=== PATIENT | female | born 1995 | race Caucasian/White ===

== ENCOUNTER 2019-08-01 11:19 | Outpatient (CLI) | payer SELFPAY ==
--- NOTE | ~2019-08-01 | US_ITS ---
US breast LT limited INDICATION: Palpable right breast abnormality TECHNIQUE: Dedicated right breast ultrasound COMPARISON: No prior studies for comparison. FINDINGS: The right breast is composed of normal heterogeneous echotexture without focal solid or cys tic mass. No mass identified in the areas of palpable concern at 7:00 and the periareolar region. IMPRESSION: 1: Normal right breast ultrasound. BI-RADS CATEGORY 1 - NEGATIVE Reviewed, dictated and finalized at location A.
== END 2019-08-01 11:20 | disposition home or self-care (01) ==
LOC: ANHIMG 11:25
PROVIDERS: PCP Family Medicine; Visit Provider Family Medicine
DX: N63.20 Unspecified lump in the left breast, unspecified quadrant (principal)
CPT/HCPCS: 76642

== ENCOUNTER 2020-12-25 11:19 | Emergency (ER) | payer OTHER, SELFPAY ==
[2020-12-25 11:45] VITALS: BP 110/85; PULSE 93; RESP 16; TEMP 36.9; O2SAT 100
--- NOTE | 2020-12-25 12:24 | ED.URI ---
HPI - URI/Sore Throat General Chief Complaint: Upper Respiratory Infection Stated Complaint: sore throat/headache/neck pain Source: patient and RN notes reviewed Limitations: no limitations Related Data Home Medications Medication Instructions Recorded Confirmed alprazolam 0.25 mg PO PRN PRN 02/17/19 12/25/20 norethindrone-e.estradiol-iron [Lo 1 tablet PO DAILY 12/25/20 12/25/20 Loestrin Fe] Allergies Allergy/AdvReac Type Severity Reaction Status Date / Time No Known Allergies Allergy Verified 12/25/20 11:43 [facility] Social History Social History (Updated 05/03/19 @ 12:11 by TERI Lutz) Tobacco type: e-cigarettes/vaping Course Vital Signs Vital signs: Vital Signs Temperature 98.4 F 12/25/20 11:45 Pulse Rate 93 12/25/20 11:45 Respiratory Rate 16 12/25/20 11:45 Blood Pressure 110/85 12/25/20 11:45 Pulse Oximetry 100 12/25/20 11:45 Temperature 98.4 F 12/25/20 11:45 Pulse Rate 93 12/25/20 11:45 Respiratory Rate 16 12/25/20 11:45 Blood Pressure 110/85 12/25/20 11:45 Pulse Oximetry 100 12/25/20 11:45 MDM - URI/Sore Throat Lab Data Labs: Strep Screen Presumptive Negative *(Reference Range: Negative)* Discharge Plan Discharge Clinical Impression: Pharyngitis Prescriptions: No Action Lo Loestrin Fe 1 mg-10 mcg (24)/10 mcg (2) tablet 1 tablet PO DAILY RF: 0 alprazolam 0.25 mg tablet 0.25 mg PO PRN PRN (Reason: Anxiety) RF: 0 Follow-up/Referrals: Donta,Justyn Roberts MD [Primary Care Provider] -
== END 2020-12-25 12:40 | disposition home or self-care (01) ==
PROVIDERS: Emergency Provider Emergency Medicine; PCP Family Medicine
DX: J02.9 Acute pharyngitis, unspecified (principal); F17.200 Nicotine dependence, unspecified, uncomplicated; F41.0 Panic disorder [episodic paroxysmal anxiety]
CPT/HCPCS: 87081; 87880; 99213; G0463

== ENCOUNTER → 2020-12-29 03:27 | Outpatient (CLI) | payer OTHER, SELFPAY ==
[2020-12-29 22:41] LABS: SARS-CoV-2 RNA PCR Negative
== END ==
PROVIDERS: PCP Family Medicine; Visit Provider Emergency Medicine
DX: J02.9 Acute pharyngitis, unspecified (principal); Z20.822 Contact with and (suspected) exposure to COVID-19
CPT/HCPCS: C9803; U0003; U0005

== ENCOUNTER 2021-02-26 11:20 | Emergency (ER) | payer OTHER, SELFPAY ==
[2021-02-26 11:27] VITALS: BP 117/89; PULSE 112; RESP 16; TEMP 37.4; O2SAT 99
--- NOTE | 2021-02-26 11:31 | ED.GENADULT ---
HPI - General Adult General Chief complaint: Upper Respiratory Infection Stated complaint: congestion/ear pain/difficulty breathing Source: patient Mode of arrival: ambulatory Limitations: no limitations History of Present Illness HPI narrative: 25 y/o female. PMHx YARED, MDD. Presents to [facility] today with acute complaints of increased sinus congestion, purulent nasal discharge, bilateral ear 'fullness', as well as intermittent dyspnea for the past 5 days. Client denies fever, chills, myalgia. No sore throat, dysphagia, involuntary drooling. No chest pain, palpitations. She reports no known ill contacts or active Covid 19 viral concerns. She has been taking OTC remedies that have been sub-therapeutic. No additional acute c/o illness upon PE. Related Data Home Medications Medication Instructions Recorded Confirmed alprazolam 0.25 mg PO PRN PRN 02/17/19 12/25/20 norethindrone-e.estradiol-iron [Lo 1 tablet PO DAILY 12/25/20 12/25/20 Loestrin Fe] Allergies Allergy/AdvReac Type Severity Reaction Status Date / Time No Known Allergies Allergy Verified 12/25/20 11:43 Review of Systems Review of Systems: CONSTITUTIONAL: Denies fever, chills, sweats. EYES: Denies visual changes, redness, discharge. ENT: Positive rhinorrhea, congestion, otalgia. No sore throat. CARDIOVASCULAR: Denies chest pain, palpitations, edema. RESPIRATORY: Denies dyspnea, wheezing, cough GASTROINTESTINAL: Denies abdominal pain, nausea, vomiting, diarrhea. GENITOURINARY: Denies dysuria, hematuria, abnormal discharge SKIN: Denies rash or itching. MUSCULOSKELETAL: Denies acute back pain, joint pain, or myalgia. NEUROLOGIC: Denies numbness, or focal weakness. PSYCHIATRIC: Denies anxiety or depression. All systems reviewed & are unremarkable except as noted in HPI and below PMFSH Social History Social History Tobacco type: e-cigarettes/vaping Exam Narrative: GENERAL: This is a well-nourished, well-developed adult, in no apparent distress. HEAD: normocephalic, atraumatic. EYES: PERRL. Sclera clear/white. EARS: External ears normal, auditory canals clear and without drainage, TMs bulging. NOSE: External nose normal. Positive Rhinorrhea and purulent bilateral nare discharge. No obstruction. THROAT: Mucous membranes moist, posterior pharynx is erythematous. No exudates. No oropharyngeal swelling or compromise. NECK: Neck supple, non-tender without lymphadenopathy, masses or thyromegaly. CARDIOVASCULAR: Regular rate and rhythm without murmurs, gallops, or rubs. RESPIRATORY: Clear to auscultation. Breath sounds equal bilaterally. No wheezes, rales, or rhonchi. GASTROINTESTINAL: Abdomen soft, non-tender, nondistended. Bowel sounds are active. No guarding. SKIN: warm, intact with no suspicious lesions or rash, good texture and turgor. NEURO: Alert, active, and age appropriate. No focal neurologic deficits. EXTREMITIES: Negative. Course Vital Signs Vital signs: Vital Signs Temperature 37.4 C 02/26/21 11:27 Pulse Rate 112 H 02/26/21 11:27 Respiratory Rate 16 02/26/21 11:27 Blood Pressure 117/89 02/26/21 11:27 Pulse Oximetry 99 02/26/21 11:27 Temperature 37.4 C 02/26/21 11:27 Pulse Rate 112 H 02/26/21 11:27 Respiratory Rate 16 02/26/21 11:27 Blood Pressure 117/89 02/26/21 11:27 Pulse Oximetry 99 02/26/21 11:27 Medical Decision Making [facility] Narrative Medical decision making narrative: -Client appears non-toxic and no respiratory distress. -Amoxicillin for suspect bacterial sinusitis > 5 days. -Resumption of additional OTC remedies for symptomatic relief is advised. -PCP F/U 1 WK. -ER W/Emergent health status changes. Pt agrees. Differential Diagnosis Differential Diagnosis: Differential Diagnosis: Consideration of the following conditions may be warranted for the presenting problem, they are not final diagnoses: upper resp
== END 2021-02-26 11:41 | disposition home or self-care (01) ==
PROVIDERS: Emergency Provider Nurse Practitioner Adult Health; PCP Family Medicine
DX: J01.90 Acute sinusitis, unspecified (principal); F17.200 Nicotine dependence, unspecified, uncomplicated; F41.1 Generalized anxiety disorder
CPT/HCPCS: 99213; G0463

== ENCOUNTER 2021-03-25 15:13 | Emergency (ER) | payer OTHER, SELFPAY ==
[2021-03-25 15:22] VITALS: BP 146/87; PULSE 115; RESP 16; TEMP 37; O2SAT 99
--- NOTE | 2021-03-25 15:32 | ED.URI ---
HPI - URI/Sore Throat General Chief Complaint: Upper Respiratory Infection Stated Complaint: congestion/drainage/lyn/nausea/cough/dizzy Time Seen by Provider: 03/25/21 15:32 Source: patient Mode of arrival: ambulatory Limitations: no limitations History of Present Illness HPI Narrative: Jami Wiggins is a 25 yo female with no PMH comes to express care with complaints of dizziness lightheadedness, vomiting x1, loss of sinus congestion x2 to 3 days. She states her ears are popping but has no sore throat and very little cough. She has not had any fever either and she did take a Covid test yesterday which was negative and a test which is also negative. She is scheduled for Covid test on Sunday which I encouraged her to take Related Data Home Medications Medication Instructions Recorded Confirmed norethindrone-e.estradiol-iron [Lo 1 tablet PO DAILY 12/25/20 12/25/20 Loestrin Fe] bupropion HCl mg PO 03/25/21 Allergies Allergy/AdvReac Type Severity Reaction Status Date / Time No Known Allergies Allergy Verified 12/25/20 11:43 Review of Systems Review of Systems: CONSTITUTIONAL: Denies fever, chills, sweats. Dizziness EYES: Denies visual changes, redness, discharge. ENT: Has rhinorrhea, has congestion, sore throat, bilateral otalgia. CARDIOVASCULAR: Denies chest pain, palpitations, edema. RESPIRATORY: Denies dyspnea, wheezing, mild cough GASTROINTESTINAL: Denies abdominal pain, nausea, vomiting, diarrhea. GENITOURINARY: Denies dysuria, hematuria, abnormal discharge SKIN: Denies rash or itching. NEUROLOGIC: Denies numbness, or focal weakness. PSYCHIATRIC: Denies anxiety or depression. PMFSH Past Medical History Medical History No acute medical problems Social History Social History (Updated 03/25/21 @ 15:44 by Mesha Looney CNP) Tobacco type: e-cigarettes/vaping Alcohol intake: current Comments At time of signature, I agree with nursing past medical, surgical, social and family history. There is no relevant family history pertinent to the presenting complaint. Exam Narrative: GENERAL: This is a well-nourished, well-developed patient, in mild distress. HEAD: normocephalic, atraumatic. EYES: Sclera clear/white. Vision is grossly intact. EARS: External ears normal, auditory canals erythema with right greater than left and without drainage, TMs normal without perforation. Hearing grossly intact. NOSE: External nose normal with nasal discharge, nares with redness, has rhinorrhea. THROAT: Mucous membranes moist, posterior pharynx NECK: Neck supple, non-tender CARDIOVASCULAR: Tachycardic rate and rhythm without murmurs, gallops, or rubs. RESPIRATORY: Clear to auscultation. Breath sounds equal bilaterally. No wheezes, rales, or rhonchi. GASTROINTESTINAL: Abdomen soft, SKIN: warm, intact with no suspicious lesions or rash, good texture and turgor. NEURO: awake, alert, and oriented to person, place and time. There were no obvious focal neurologic abnormalities. Steady gait EXTREMITIES: Normal range of motion. BACK: Nontender without deformity Course Course Emergency Course: [facility] symptoms and complaints of dizziness x2 to 3 days Started on prednisone, eardrops, continue Mucinex, given a few Zofran for nausea and vomiting Advised patient to push fluids and eat soft foods-she will go for Covid test on Sunday; she is fully vaccinated her boyfriend does not and we discussed why it would be beneficial for him to get vaccinated Vital Signs Vital signs: Vital Signs Temperature 98.6 F 03/25/21 15:22 Pulse Rate 115 H 03/25/21 15:22 Respiratory Rate 16 03/25/21 15:22 Blood Pressure 146/87 H 03/25/21 15:22 Pulse Oximetry 99 03/25/21 15:22 Temperature 98.6 F 03/25/21 15:22 Pulse Rate 115 H 03/25/21 15:22 Respiratory Rate 16 03/25/21 15:22 Blood Pressure 146/87 H
== END 2021-03-25 15:56 | disposition home or self-care (01) ==
PROVIDERS: Emergency Provider Nurse Practitioner; PCP Family Medicine
DX: E86.0 Dehydration (principal); J06.9 Acute upper respiratory infection, unspecified; F17.290 Nicotine dependence, other tobacco product, uncomplicated
CPT/HCPCS: 99213; G0463

== ENCOUNTER 2021-06-20 12:43 | Emergency (ER) | payer OTHER, SELFPAY ==
[2021-06-20 12:48] VITALS: BP 125/88; PULSE 88; RESP 12; TEMP 36.9; O2SAT 100
--- NOTE | 2021-06-20 12:48 | ED.URI ---
HPI - URI/Sore Throat General Chief Complaint: Upper Respiratory Infection Stated Complaint: Sore throat Time Seen by Provider: 06/20/21 13:00 Source: patient and RN notes reviewed Mode of arrival: ambulatory Limitations: no limitations History of Present Illness HPI Narrative: 25-year-old female presents with concern for sore throat. She reports sore throat started today. Over the last several days she has had some lightheadedness and feelings of dizziness and general malaise. Reports a COVID exposure. She reports she has tried ibuprofen. Reports tasting iron in her mouth. Reports she removed a tonsil stone today. MD elicited complaint: sore throat Related Data Home Medications Medication Instructions Recorded Confirmed norethindrone-e.estradiol-iron [Lo 1 tablet PO DAILY 12/25/20 06/20/21 Loestrin Fe] aripiprazole 2 mg PO DAILY 06/20/21 06/20/21 Allergies Allergy/AdvReac Type Severity Reaction Status Date / Time No Known Allergies Allergy Verified 06/20/21 12:52 Review of Systems Review of Systems: CONSTITUTIONAL: Reports malaise. Denies chills, sweats, or fever. EYES: Denies visual changes, redness, or discharge. ENT: Denies rhinorrhea, congestion, sinus pain, otalgia. Reports sore throat. CARDIOVASCULAR: Denies chest pain, palpitations, or edema. RESPIRATORY: Denies cough. Denies dyspnea. GASTROINTESTINAL: Denies abdominal pain, nausea, vomiting, diarrhea SKIN: Denies rash or itching. MUSCULOSKELETAL: Reports myalgia. NEUROLOGIC: Denies headache. Reports dizziness All systems reviewed & are unremarkable except as noted in HPI and below PMFSH Past Medical History Medical History No acute medical problems Social History Social History (Updated 03/25/21 @ 15:44 by Mesha Looney CNP) Tobacco type: e-cigarettes/vaping Alcohol intake: current Comments At time of signature, agree with nursing past medical, surgical, social and family history. There is no relevant family history pertinent to the presenting complaint Exam Narrative: GENERAL: Well-appearing, well-nourished, and in no acute distress. HEAD: Normocephalic EYES: PERRLA, conjunctivae clear ENT: Nares clear. Mucous membranes moist. TM pearly mora with dull light reflex bilaterally; no tragal tenderness. Oropharynx erythematous without lesions. Tonsils not enlarged and without exudate, no drooling, no hoarseness, no trismus, uvula midline. NECK: Supple. No lymphadenopathy CHEST: Clear to auscultation, breath sounds equal. No wheezing, rhonchi, rales, or stridor. No respiratory distress, speaks in full sentences. HEART: Regular rate and rhythm. No murmur heard. SKIN: Warm, dry, no rash. NEURO: Alert and oriented x3. PSYCH: Normal mood and affect Course Course Emergency Course: Patient is aware of diagnosis, understands and agrees to treatment plan. Anticipatory guidance given. Patient agrees to follow-up as directed and is aware of reasons to seek care at the emergency department. Portions of this record may have been created with voice recognition software Level of Care: Express Care Visit Vital Signs Vital signs: Vital Signs Temperature 98.4 F 06/20/21 12:48 Pulse Rate 88 06/20/21 12:48 Respiratory Rate 12 06/20/21 12:48 Blood Pressure 125/88 06/20/21 12:48 Pulse Oximetry 100 06/20/21 12:48 Temperature 98.4 F 06/20/21 12:54 Pulse Rate 88 06/20/21 12:54 Respiratory Rate 12 06/20/21 12:54 Blood Pressure 125/88 06/20/21 12:54 Pulse Oximetry 100 06/20/21 12:54 Reviewed. MDM - URI/Sore Throat MDM Narrative Medical decision making narrative: Differential diagnosis considered: Shah virus, strep pharyngitis, allergic rhinitis, upper respiratory tract infection, sinusitis, rhinosinusitis, nasopharyngitis. viral pharyngitis, otitis media, otitis externa, pneumonia, bronchitis, viral cough syndrome, viral syndrome, and influenza. Exam find
[2021-06-20 12:54] VITALS: BP 125/88; PULSE 88; RESP 12; TEMP 36.9; O2SAT 100
[2021-06-21 10:48] LABS: SARS-CoV-2 RNA PCR Negative
== END 2021-06-20 13:25 | disposition home or self-care (01) ==
PROVIDERS: Emergency Provider Nurse Practitioner; PCP Family Medicine
DX: J02.8 Acute pharyngitis due to other specified organisms (principal); Z20.822 Contact with and (suspected) exposure to COVID-19; F17.290 Nicotine dependence, other tobacco product, uncomplicated
CPT/HCPCS: 87081; 87426; 87880; 99213; C9803; G0463; U0003; U0005